=== PATIENT | female | born 1995 | race Caucasian/White ===

== ENCOUNTER → 2020-01-31 | Outpatient (CLI) | payer BC ==
[~2020-01-31] MED LIST: LARISSIA-28 TA1 EACH PO; NORCO 10-325 T1 EACH PO
== END ==
LOC: LAB 07:49
PROVIDERS: ATTEND Surgery
DX: Z01.812 Encounter for preprocedural laboratory examination (principal); Z20.828 Contact with and (suspected) exposure to other viral communicable diseases

== ENCOUNTER 2020-02-01 08:02 | Day surgery (SDC) | payer BC ==
[~2020-02-01] VITALS: Ht 172.7 cm; Wt 81.2 kg
[~2020-02-01 08:02] MED LIST changes: -NORCO 10-325 T1 EACH PO
[2020-02-01 09:01] VITALS: BP 121/69
[2020-02-01] MEDS ORDERED: NORCO 10-325 T1 EACH PO (11:11)
[2020-02-01 11:21] VITALS: BP 121/69
--- NOTE | 2020-02-02 14:07 | PATH ---
[facility] [place] [address] PATHOLOGY RPT PROCEDURE Name: ISRAEL GASPAR Room #: DEP [facility] M.R.#: [id number] Admission: 02/01/20 Date of : 89 Discharge: 02/01/20 Report #: [id number] Path Case #: [id number] [facility] Accession Number: [id number] . 01 Material submitted: . gallbladder - GALLBLADDER . 01 Clinical history: . CALCULUS OF GALLBLADDER . 02 Diagnosis: Gallbladder "gallbladder cholecystectomy": - Moderate chronic cholecystitis with cholelithiasis. (SHA:misael; 02/02/2020) [facility] [place]02[place] 1243 Local . 02 Electronically signed: . Julián Serna MD, Pathologist NPI- [id number] . 01 Gross description: . The specimen is received in formalin, labeled "Israel Goetzman, gallbladder". Received is an intact gallbladder measuring 6.5 x 2.7 x 2.2 cm in greatest dimensions displaying a pink-purple serosal surface. Opening the specimen reveals a velvety, pink-acuna, bile-stained mucosa with a gallbladder wall thickness of 0.1 cm. A single black, nodular calculus is present, and no masses or lesions are noted grossly. At the cystic neck, a single lymph node is identified measuring 0.7 cm in maximum dimensions, which is bisected. [employer] sections, to include the proximal margin and bisected lymph node, are submitted in cassette A1. (CAA; 02/01/2020) [facility] 02/01/2020 1550 Local . 02 Pathologist provided ICD-10: K80.10 . 02 CPT . 158192 Specimen Comment: A courtesy copy of this report has been sent to [phone] Specimen Comment: Report sent to Performed at: [address] [id number] MD Micah Montero MD Phone: [phone] Performed at: [address] [id number] [place] [address] PATHOLOGY RPT PROCEDURE Name: ISRAEL GASPAR Room #: DEP [facility] Adalberto#: [id number] Admission: 02/01/20 Date of : 89 Discharge: 02/01/20 Report #: [id number] Path Case #: [id number] MD Tristin Schultz MD Phone: [phone]
== END 2020-02-01 12:20 | disposition home or self-care (01) ==
LOC: OR 08:02 → TBA 08:05 → OR 09:06
PROVIDERS: ATTEND Surgery
DX: K80.10 Calculus of gallbladder with chronic cholecystitis without obstruction (principal); R10.11 Right upper quadrant pain; Z98.890 Other specified postprocedural states
CPT/HCPCS: 50010; 50101; 50411; 50555; 51489; 52265; 52266; 53307; 53312; 53314; 54118; 55245; 56462; 56525; 56526; 62110; 62900; 70005